=== PATIENT | female | born 1980 | race Caucasian/White ===

== ENCOUNTER 2016-10-07 08:20 | Inpatient (IN) | payer OTHER ==
[~2016-10-07] VITALS: Ht 167.6 cm; Wt 81.6 kg
[2016-10-07 08:58] LABS: BILIRUBIN NEGATIVE (NEGATIVE); BLOOD NEGATIVE Ery/uL (NEGATIVE); CLARITY CLEAR (CLEAR); COLOR YELLOW (YELLOW); GLUCOSE (U) NORMAL (NORMAL); KETONE (U) NEGATIVE (NEGATIVE); LEUKOCYTES NEGATIVE Leu/uL (NEGATIVE); NITRITE NEGATIVE (NEGATIVE); PROTEIN NEGATIVE (NEGATIVE); UROBILINOGEN 0.2 mg/dL (0.2-1.0)
[2016-10-07 10:24] LABS: HCT 38.1 % (37.0-47.0); HGB 12.9 g/dl (12.5-16.0); MCH 27.6 pg (25.0-31.0); MCHC 33.9 g/dL (32.0-36.0); MCV 81.6 fL (78.0-100.0); MPV 10.5 fL (6.0-9.5); RBC 4.67 M/uL (4.20-5.40); RDW 14.4 % (11.5-14.0); WBC 13.9 K/uL (4.0-10.5)
[2016-10-08 06:10] LABS: HCT 33.9 % (37.0-47.0); HGB 11.4 g/dl (12.5-16.0); MCH 27.5 pg (25.0-31.0); MCHC 33.6 g/dL (32.0-36.0); MCV 81.9 fL (78.0-100.0); MPV 10.3 fL (6.0-9.5); RBC 4.14 M/uL (4.20-5.40); RDW 14.1 % (11.5-14.0); WBC 14.4 K/uL (4.0-10.5)
== END 2016-10-09 11:31 | disposition home or self-care (01) | DRG 775 ==
LOC: FOD 08:20 → FOB 08:22 → FOD 09:49 → FOB 09:50
PROVIDERS: ADMIT Obstetrics & Gynecology
PROC: 10907ZC Drainage of Amniotic Fluid, Therapeutic from Products of Conception, Via Natural or Artificial Opening (ICD-10-PCS; principal; 2016-10-07)
PROC: 10E0XZZ Delivery of Products of Conception, External Approach (ICD-10-PCS; 2016-10-07)
PROC: 4A1HX4Z Monitoring of Products of Conception, Cardiac Electrical Activity, External Approach (ICD-10-PCS; 2016-10-07)
PROC: 0HQ9XZZ Repair Perineum Skin, External Approach (ICD-10-PCS; 2016-10-07)
DX: O70.0 First degree perineal laceration during delivery (principal); E03.9 Hypothyroidism, unspecified; O09.43 Supervision of pregnancy with grand multiparity, third trimester; Z3A.39 39 weeks gestation of pregnancy; Z37.0 Single live birth; O43.193 Other malformation of placenta, third trimester
CPT/HCPCS: 36415; 81003; 88307